=== PATIENT | male | born 1955 | race Caucasian/White ===

== ENCOUNTER 2018-02-20 11:32 | Emergency (ER) | payer MEDICAID ==
--- NOTE | 2018-02-20 12:17 | EDM.PDOC ---
ED HPI GENERAL MEDICAL PROBLEM - General Chief Complaint: Upper Extremity Injury/Pain Stated Complaint: L PINKY FINGER LAC Time Seen by Provider: 02/20/18 11:52 Source of Information: Reports: Patient History Limitations: Reports: No Limitations - History of Present Illness INITIAL COMMENTS - FREE TEXT/NARRATIVE: Patient is 62-year-old male who presents to the ED complaining of a abrasion type wound to the tip of the left fifth finger involving the distal aspect of the nail. Patient states he was holding a jigsaw at angle cutting a piece of plywood when it bounced out of the groove catching the tip of his finger on the blade. They believe the wound was worse than it is because of the bleeding. They bandaged the finger and presented to the ED for further evaluation. Upon evaluation and removal of bandage there was minimal bleeding/wound present. He has full range of motion with no sensory deficits. Tetanus status up-to-date. He is on no anticoagulants. He offers no additional complaints. Left Hand Pain Score (Numeric/FACES): 3 - Related Data Allergies Allergy/AdvReac Type Severity Reaction Status Date / Time amoxicillin Allergy Swelling Verified 02/20/18 11:38 Home Meds: Home Meds Amlodipine. 1 tab PO DAILY 02/20/18 [History] Celebrex. 1 tab PO DAILY 02/20/18 [History] Crestor. 1 tab PO DAILY 02/20/18 [History] metFORMIN HCl [Metformin HCl ER] 1,000 mg PO DAILY 02/20/18 [History] Past Medical History Cardiovascular History: Reports: High Cholesterol, Hypertension Endocrine/Metabolic History: Reports: Other (See Below) Other Endocrine/Metabolic History: borderline diabetis Social & Family History - Tobacco Use Smoking Status *Q: Current Every Day Smoker Years of Tobacco use: 40 Packs/Tins Daily: 0.2 - Recreational Drug Use Recreational Drug Use: No Review of Systems - Review of Systems Review Of Systems: ROS reveals no pertinent complaints other than HPI. ED EXAM, GENERAL - Physical Exam Exam: See Below Exam Limited By: No Limitations General Appearance: Alert, WD/WN, No Apparent Distress Ears: Hearing Grossly Normal Nose: Normal Inspection Throat/Mouth: Normal Voice, No Airway Compromise Neck: Normal Inspection Respiratory/Chest: No Respiratory Distress, No Accessory Muscle Use Cardiovascular: Normal Peripheral Pulses, Regular Rate, Rhythm Peripheral Pulses: 4+: Radial (L) Extremities: Other (Small abrasion to the tip of the left fifth finger tip. Portion of the distal aspect of the nail is pulled up. ) Neurological: Alert, Oriented, CN II-XII Intact, Normal Cognition, No Motor/ Sensory Deficits Psychiatric: Normal Affect, Normal Mood Skin Exam: Warm, Dry Course - Vital Signs Last Recorded V/S: Last Vital Signs Temp 96.9 F 02/20/18 11:41 Pulse 65 02/20/18 11:41 Resp 17 02/20/18 11:41 BP 142/77 H 02/20/18 11:41 Pulse Ox 95 02/20/18 11:41 - Re-Assessments/Exams Free Text/Narrative Re-Assessment/Exam: Patient has a abrasion wound from a jigsaw to the tip of the left pinky finger involving the nail. Portion of the distal aspect the nail has been pulled up. Small wound present. Pain with palpation. Minimal swelling present. Full range of motion and no sensory deficits. I offered to obtain a x-ray of the finger to ensure that there is no fracture present to which the patient has refused. We' ll dress the wound accordingly with bacitracin. Tetanus status is up-to-date. Discharge instructions as documented. Departure - Departure Time of Disposition: 12:13 Disposition: Home, Self-Care 01 Condition: Good Clinical Impression: Abrasion of finger of left hand Qualifiers: Encounter type: initial encounter Qualified Code(s): S60.419A - Abrasion of unspecified finger, initial encounter - Discharge Information Instructions: Abrasion, Trpi-as-Isfr Referrals: Jody Pierre MD [Primary Care Provider] - Forms: ED Department Discharge Additional Instructions: Cleanse site twice daily with soap and water, pat dry, reapply Triple Antibiotic ointment, and dressing. Keep area clean and dry. Follow-up with PCP as needed. Return to ED for develop any new or worsening symptoms.
== END 2018-02-20 12:30 | disposition home or self-care (01) ==
LOC: JD.ED 11:32 → MERGE 11:32 → JD.ED 12:30
DX: S60.417A Abrasion of left little finger, initial encounter (principal); E78.00 Pure hypercholesterolemia, unspecified; I10 Essential (primary) hypertension; Z88.1 Allergy status to other antibiotic agents; Z79.899 Other long term (current) drug therapy; F17.210 Nicotine dependence, cigarettes, uncomplicated; Z79.84 Long term (current) use of oral hypoglycemic drugs; W26.8XXA Contact with other sharp object(s), not elsewhere classified, initial encounter
CPT/HCPCS: 99283

== ENCOUNTER → 2022-10-25 | Day surgery (SDC) | payer MEDICAID, MEDICARE ==
[~2022-10-25] MED LIST: Acetaminophen 325 MG Tab PO SCH; Albuterol 0.083% 2.5 MG/3 ML Neb Soln NEB SCH; Albuterol 0.083% 2.5 MG/3 ML Neb Soln NEB STA; Albuterol 0.083% 2.5 MG/3 ML Neb Soln ONE; Dexamethasone 4 MG/ML 5 ML MDV ONE; Dexmedetomidine 200 MCG/2 ML SDV ONE; EPINEPHrine 1 MG/ML SDV ONE; HYDROmorphone 0.5 MG/0.5 ML Syringe IVPUSH PRN; Lactated Ringers 1,000 ML IV SCH; Lidocaine 1% 6 ML ONE; Lidocaine 1%/Sod Bicarbonate in NS 8.4% 1 ML Syringe IDERM PRN; Metoprolol Tartrate 5 MG/5 ML SDV ONE; Midazolam 1 MG/ML 2 ML SDV ONE; Ondansetron 4 MG/2 ML SDV ONE; Pregabalin 25 MG Cap PO SCH; Propofol 200 MG/20 ML SDV ONE; Rocuronium 50 MG/5 ML Vial ONE; Ropivacaine 0.5% 5 MG/ML 30 ML SDV ONE; Sodium Chloride 0.9% 10 ML Syringe FLUSH PRN; Sodium Chloride 0.9% 10 ML Syringe FLUSH SCH; Succinylcholine 200 MG/10 ML MDV ONE; Tranexamic Acid 1,000 MG/10 ML Vial ONE; Vancomycin 1 GM SDV ONE; Vancomycin 2 GM in Sodium Chloride 0.9% 500 ML IV SCH; fentaNYL 100 MCG/2 ML SDV IVPUSH PRN; fentaNYL 100 MCG/2 ML SDV ONE; oxyCODONE ER 10 MG TAB.ER PO SCH
== END | disposition home or self-care (01) ==
LOC: JD.SDS 06:15
PROVIDERS: ATTEND Orthopaedic Surgery
DX: M75.81 Other shoulder lesions, right shoulder (principal); M19.011 Primary osteoarthritis, right shoulder; I10 Essential (primary) hypertension; E78.2 Mixed hyperlipidemia; E11.9 Type 2 diabetes mellitus without complications; G47.33 Obstructive sleep apnea (adult) (pediatric); F17.210 Nicotine dependence, cigarettes, uncomplicated; K21.9 Gastro-esophageal reflux disease without esophagitis; Z98.890 Other specified postprocedural states; Z79.899 Other long term (current) drug therapy; Z88.0 Allergy status to penicillin; Z79.84 Long term (current) use of oral hypoglycemic drugs; Z91.030 Bee allergy status
CPT/HCPCS: 23472; 73020; 76000; 97166; 97535; A9270; C1713; C1769; C1776; J0171; J0330; J1100; J2250; J2405; J2704; J2795; J3010; J3370; J3490; J7040; J7120; 01638; 64415; 76942